=== PATIENT | female | born 1985 | race Two or more races ===

== ENCOUNTER 2024-03-07 09:22 | Emergency (ER) | payer MEDICAID, OTHER ==
[~2024-03-07] VITALS: Ht 160 cm; Wt 104.0 kg
[2024-03-07 09:53] LABS: Urine Bacteria None Seen /hpf (None Seen)
[2024-03-07 10:12] LABS: Urine Blood 3+ /uL (Negative); Urine Clarity Turbid (Clear); Urine Color Yellow (Yellow); Urine Mucus FEW (None Seen); Urine Protein, UAD TRACE (Negative); Urine Squamous Epithelial Cell MOD /hpf (<5); Urine Urobilinogen Normal (Negative); Urine WBC 8 /hpf (0 - 5)
--- NOTE | 2024-03-07 10:18 | ED.PDOC ---
SENIOR ENGINEER HPI Comments 38 y.o female with PMHx of HTN, presents to the ED for a chief complaint of vaginal bleeding associated with abdominal cramping that presented 4-5 days ago. Patient reports 11 weeks gestation with CREDIT RESOLUTION REPRESENTATIVE hx of . Patient reports minimal bright red bleeding with no blood clotting, states cramping is localized to the lower abdomen and rates it a 3/10 on the pain scale. Patient denies any fever, chills, back pain, dysuria. Chief Complaint: Vaginal Bleed Time Seen by MD: 10:28 Reviewed Notes: Nurses Notes, Medications, Allergies Allergies: Coded Allergies: NO KNOWN ALLERGIES (Unverified , 03/07/24) Information Source: Patient Mode of Arrival: Ambulatory Timing: Days (4) Severity: Moderate Vaginal Discharge: None Vaginal Lesions: None Vaginal Mass: None Onset Of Mass/Bleeding: Spontaneous Past Medical History PAST MEDICAL HISTORY: HTN Surgical History: Denies all surgeries CREDIT RESOLUTION REPRESENTATIVE History: No Pertinent CREDIT RESOLUTION REPRESENTATIVE History Family History Family History: Reviewed,noncontributory to illness, No family hx of Cancer, No family hx of DM, No family hx of Heart christiana, No family hx of HTN, No family hx ofKidney christiana, No family hx of Liver christiana, No family hx of Lung christiana, No family hx of Stroke Social History Smoker: Non-Smoker Alcohol: Denies ETOH Use Drugs: Denies Drug Use Lives In: Home Constitutional: denies: chills, diaphoresis, fatigue, fever, malaise, sweats, weakness, others EENTM: denies: blurred vision, double vision, ear bleeding, ear discharge, ear drainage, ear pain, ear ringing, eye pain, eye redness, hearing loss, mouth pain, mouth swelling, nasal discharge, nose bleeding, nose congestion, nose pain, photophobia, tearing, throat pain, throat swelling, voice changes, others Respiratory: denies: cough, hemoptysis, orthopnea, SOB at rest, shortness of breath, SOB with excertion, stridor, wheezing, others Cardiovascular: denies: chest pain, dizzy spells, diaphoresis, Dyspnea on exertion, edema, irregular heart beat, left arm pain, lightheadedness, palpitations, PND, syncope, others Gastrointestinal: reports: abdominal pain; denies: abdomen distended, blood streaked bowels, constipated, diarrhea, dysphagia, difficulty swallowing, h ematemesis, melena, nausea, poor appetite, poor fluid intake, rectal bleeding, rectal pain, vomiting, others Genitourinary: reports: abnormal vagina bleeding, ; denies: burning, dyspareunia, dysuria, flank pain, frequency, hematuria, incontinence, pain, vagina discharge, urgency, others Neurological: denies: dizziness, fainting, headache, left sided numbness, left sided weakness, numbness, paresthesia, pre-existing deficit, right sided numbness, right sided weakness, seizure, speech problems, tingling, tremors, weakness, others Musculoskeletal: denies: back pain, gout, joint pain, joint swelling, muscle pain, muscle stiffness, neck pain, others Integumetry: denies: bruises, change in color, change in hair/nails, dryness, laceration, lesions, lumps, rash, wounds, others Allergic/Immunocompromised: denies: Difficulty Healing, Frequent Infections, Hives, Itching, others Hematologic/Lymphatic: denies: anemia, blood clots, easy bleeding, easy bruising, swollen glands, others Endocrine: denies: excessive hunger, excessive sweating, excessive thirst, excessive urination, flushing, intolerance to cold, intolerance to heat, unexplained weight gain, unexplained weight loss, others Psychiatric: denies: anxiety, bipolar disorder, depression, hopeless, panic disorder, schizophrenia, sleepless, suicidal, others All Other Systems: Reviewed and Negative Physical Exam General Appearance: Mild Distress HEENT: Normal ENT Inspection, Pharynx Normal, TMs Normal Neck: Full Range of Motion, Non-Tender, Normal, Normal Inspection Respiratory: Chest Non-Tender, Lungs Clear, No Accessory Muscle Use, No Respiratory Distress, Normal Breath Sounds Cardiovascular: No Edema, No JVD, No Murmur, No Gallop, Normal Peripheral Pulses, Regular Rate/Rhythm Breast Exam: Deferred Gastrointestinal: No Organomegaly, Non Tender, No Pulsatile Mass, Normal Bowel Sounds, Soft Genitalia: Deferred Pelvic: Deferred Rectal: Deferred Extremities: No calf tenderness, Normal capillary refill, Normal inspection, Normal range of motion, Non-tender, No pedal edema Musculoskeletal : Apperance: Normal Neurologic: Alert, perishable fruit inspector II-XII nml as Tested, No Motor Deficits, Normal Affect, Normal Mood, No Sensory Deficits Cerebellar Function: Normal Reflexes: Normal Skin: Dry, Normal Color, Warm Lymphatic: No Adenopathy Was a procedure done? Was a procedure done?: No Differential Diagnosis (CREDIT RESOLUTION REPRESENTATIVE) Vaginal Bleeding: - Incomplete, - Inevitable, - Missed, - Threatened X-Ray, Labs, Meds, VS Vital Signs Date Time Temp Pulse Resp B/P (MAP) Pulse Ox O2 Delivery O2 Flow Rate FiO2 03/07/24 12:00 70 16 117/76 (90) 96 03/07/24 09:37 97.9 113 18 167/100 (122) 99 Lab Test 03/07/24 09:34 Range/Units Urine Color Yellow Yellow Urine Clarity Turbid H Clear Urine pH 6.0 5.0-9.0 Urine Specific [place] 1.020 1.001-1.035 Urine Protein Trace H Negative Urine Ketones Negative Negative Urine Blood 3+ H Negative /uL Urine Nitrite Negative Negative Urine Bilirubin Negative Negative Urine Urobilinogen Normal Negative mg/dL Urine Leukocyte Esterase Trace Negative /uL Urine RBC 9 0 - 4 /hpf Urine WBC 8 0 - 5 /hpf Urine Squamous Epithelial Cells Mod <5 /hpf Urine Bacteria None seen None Seen /hpf Urine Mucus Few None Seen Urine Glucose Normal Normal mg/dL Urine Test Positive Negative Pelvic ultrasound shows: IMPRESSION: No heart tones are visualized at this time. Correlate with serial beta hCGs. The urine test is positive for UTI The patient will be started on Macrobid At this time, the patient will be discharged and will follow up with the primary care doctor and the OBGYN The patient will return to the emergency department's the condition worsens. The patient was to follow up with her own OBGYN. Images Reviewed?: Images reviewed and evaluated by me Time of 1ST Reevaluation: 10:54 Reevaluation 1ST: Unchanged Patient Education/Counseling: Diagnosis, Treatment, Prognosis, Need For Follow Up Family Education/Counseling: No Family Present Departure 1 Departure Time of Disposition: 12:51 Impression: Primary Impression: demise Additional Impression: UTI (urinary tract infection) Qualified Codes: N30.00 - Acute cystitis without hematuria Disposition: 01 HOME / SELF CARE / HOMELESS Condition: Fair Discharged With: Self Critical Care Note Critical Care Time?: No Stability Stability form required: No I personally scribed for ROXY ORTIZ MD ([email or web address]) on 03/07/24 at 10:18. Electronically submitted by Diane Otto ([facility]). I personally scribed for ROXY ORTIZ MD ([email or web address]) on 03/07/24 at 10:54. Electronically submitted by Diane Otto ([facility]). ROXY ORTIZ MD Mar 07, 2024 10:18
--- NOTE | 2024-03-07 11:39 | DVH ---
OB ULTRASOUND <14 WEEKS: HISTORY: vag bleeding TECHNIQUE: Multiple real-time grayscale sonographic images of the pelvis with duplex Doppler color f low, spectral and M-mode analysis. TRANSDUCERS: TA adn TV FINDINGS: The uterus measures 11 x 7 x 7 cm. The cervix was not seen. OVARIES ARE NOT VISUALIZED. IUP single live fetus at 6 weeks 1 day average ultrasound age based on mean crown-rump length of 0.4 cm and gestational sac size of 1.8 cm IMPRESSION: No heart tones are visualized at this time. Correlate with serial beta hCGs.
[2024-03-07 12:00] VITALS: BP 117/76; PULSE 70; RESP 16; O2SAT 96
[2024-03-07] MEDS ORDERED: NITR-87 PO (13:31)
== END 2024-03-07 13:33 | disposition home or self-care (01) ==
LOC: ER 09:22
DX: O36.4XX0 Maternal care for intrauterine death, not applicable or unspecified (principal); O23.41 Unspecified infection of urinary tract in pregnancy, first trimester; N39.0 Urinary tract infection, site not specified; I10 Essential (primary) hypertension; Z3A.11 11 weeks gestation of pregnancy
CPT/HCPCS: 76801; 81001; 81025